=== PATIENT | male | born 1945 | race Caucasian/White ===

== ENCOUNTER 2020-11-26 09:42 | Day surgery (SDC) | payer OTHER ==
[~2020-11-26] VITALS: Ht 175.3 cm; Wt 87.6 kg
[~2020-11-26 09:42] MED LIST: ALLO100 PO; Artificial Tear15 ML BOTHEYES; CETI5 PO; LEVOTHYROXINE50 MC3 PO; LISI5 PO; MULTIPLE VITAM1 EACH PO; PREG100 PO; TRAM50 PO; VITAMIN D325 MC3 PO; Vitamin B-121000 MCG PO
== END 2020-11-26 11:20 | disposition home or self-care (01) ==
LOC: ORSCSDS 09:42
PROVIDERS: Internal Medicine Gastroenterology
PROC: 0DJ08ZZ Inspection of Upper Intestinal Tract, Via Natural or Artificial Opening Endoscopic (ICD-10-PCS; principal; 2020-11-26 10:45)
DX: K74.69 Other cirrhosis of liver (principal); I85.00 Esophageal varices without bleeding; K76.6 Portal hypertension; K31.89 Other diseases of stomach and duodenum; E11.9 Type 2 diabetes mellitus without complications; E03.9 Hypothyroidism, unspecified; I10 Essential (primary) hypertension; Z87.891 Personal history of nicotine dependence; Z79.899 Other long term (current) drug therapy
CPT/HCPCS: 82947; J2704; J7120

== ENCOUNTER 2022-10-21 11:37 | Day surgery (SDC) | payer OTHER ==
[~2022-10-21] VITALS: Ht 175.3 cm; Wt 90.3 kg
[~2022-10-21 11:37] MED LIST changes: +Acerola C500 MG; +Amlodipine Bes2.5 MG; +Milk Thistle175 M1; +PROP10
[2022-10-21] MEDS ORDERED: Triamcinolone A15 G2 (11:55)
[2022-10-21 13:47] VITALS: BP 110/67
== END 2022-10-21 13:47 | disposition home or self-care (01) ==
LOC: ORSCSDS 11:37
PROVIDERS: Internal Medicine Gastroenterology
PROC: 0DJ08ZZ Inspection of Upper Intestinal Tract, Via Natural or Artificial Opening Endoscopic (ICD-10-PCS; principal; 2022-10-21 13:15)
DX: K70.30 Alcoholic cirrhosis of liver without ascites (principal); I85.10 Secondary esophageal varices without bleeding; K70.10 Alcoholic hepatitis without ascites; I10 Essential (primary) hypertension; E11.9 Type 2 diabetes mellitus without complications; E03.9 Hypothyroidism, unspecified; D75.9 Disease of blood and blood-forming organs, unspecified; B18.2 Chronic viral hepatitis C; K76.6 Portal hypertension; K31.89 Other diseases of stomach and duodenum; Z87.890 Personal history of sex reassignment; Z79.899 Other long term (current) drug therapy
CPT/HCPCS: 82947; J2704; J7120